=== PATIENT | female | born 1985 | race Caucasian/White ===

== ENCOUNTER 2016-12-28 15:57 | Emergency (ER) | payer OTHER ==
[~2016-12-28] VITALS: Ht 172.7 cm; Wt 130.0 kg
[~2016-12-28 15:57] MED LIST: BUPR-93 PO; ESCI10TA PO; PROP20 PO
[2016-12-28 16:13] VITALS: BP 149/96
== END 2016-12-28 18:27 | disposition left against medical advice (07) ==
LOC: EMS 15:59
DX: R51 Headache (principal); M54.2 Cervicalgia; I10 Essential (primary) hypertension; Z53.21 Procedure and treatment not carried out due to patient leaving prior to being seen by health care provider

== ENCOUNTER 2017-02-06 18:30 | Emergency (ER) | payer OTHER ==
[~2017-02-06] VITALS: Ht 175.3 cm; Wt 131.8 kg
[~2017-02-06 18:30] MED LIST changes: -BUPR-93 PO; -PROP20 PO
[2017-02-06] MEDS ORDERED: ONDANSETRON HCL 4 MG/2 ML VIAL ONE (19:13)
[2017-02-06] MEDS ORDERED: SODIUM CHLORIDE 0.9% 1,000 ML IV ONE (19:15)
[2017-02-06 19:23] LABS: HEMATOCRIT 41.8 % (36-46); HEMOGLOBIN 14.1 g/dL (12.0-16.0); MEAN CORPUSCULAR HEMOGLOBIN 28.4 pg (26.0-34.0); MEAN CORPUSCULAR HGB CONC 33.8 G/dL (31.0-37.0); MEAN CORPUSCULAR VOLUME 84 fL (80-100); PLATELET COUNT (AUTO) 336 K/uL (150-450); RED BLOOD CELL COUNT(AUTO) 4.97 MIL/uL (4.00-5.20); RED CELL DISTRIBUTION WIDTH 14.7 % (11.5-14.5); WHITE BLOOD COUNT (AUTO) 14.3 K/uL (4.5-11.0)
[2017-02-06 19:27] LABS: ANION GAP 17 mmol/L (8-16); CALCIUM, TOTAL 9.5 mg/dL (8.8-10.5); CARBON DIOXIDE 20 mmol/L (22-29); CHLORIDE 102 mmol/L (98-107); GLOMERULAR FILTR. RATE CALC > 60 mL/min (>60); POTASSIUM 3.5 mmol/L (3.5-5.1); SODIUM SERUM 139 mmol/L (136-145); UREA NITROGEN, BLOOD 11 mg/dL (7-18)
[2017-02-06] MEDS ORDERED: MORPHINE SULFATE 4 MG/ML SYRINGE IVP ONE ×2 (19:30→21:30)
[2017-02-06] MEDS ORDERED: METOCLOPRAMIDE HCL 5 MG/ML 2 ML VIAL IVP ONE (19:30)
[2017-02-06 19:33] LABS: ALANINE AMINOTRANSFERASE 16 U/L (12-78); ALBUMIN 3.9 g/dL (3.4-5.0); ASPARTATE AMINOTRANSFERASE 21 U/L (15-37); BILIRUBIN,TOTAL 1.6 mg/dL (0.1-1.0); TOTAL PROTEIN, SERUM 7.4 g/dL (6.4-8.2)
[2017-02-06 19:56] LABS: BAND NEUTROPHILS % (MANUAL) 12 % (1-5); LYMPHOCYTES % (MANUAL) 7 % (22-44); TOTAL CELLS COUNTED 100
[2017-02-06] MEDS ORDERED: BARIUM SULFATE 0.1% SUSPENSION 450 ML BOTTLE PO ONE (20:00)
[2017-02-06] MEDS ORDERED: IOVERSOL 350 MG/ML 100 ML VIAL ONE (21:16)
[2017-02-06] MEDS ORDERED: SODIUM CHLORIDE 0.9% 100 ML ONE (21:16)
[2017-02-06 23:30] VITALS: BP 136/68
[2017-02-06 23:49] LABS: APPEARANCE,URINE CLEAR (CLEAR); GLUCOSE, URINE (UA) NEGATIVE (NEGATIVE); KETONES,URINE TRACE mg/dL (NEGATIVE); LEUKOCYTE ESTERASE ,URINE TRACE (NEGATIVE); OCCULT BLOOD,URINE LARGE (NEGATIVE); PH,URINE 6.5 (5.0-8.0); PROTEIN,URINE NEGATIVE (NEGATIVE)
[2017-02-06 23:51] LABS: ADD UA MICROSCOPIC YES
[2017-02-06 23:59] LABS: SQUAMOUS EPITHELIAL CELL,UR Moderate /LPF (None Seen)
[2017-02-07] LABS: RBC,URINE 26-50 /HPF (0-2)
== END 2017-02-07 00:35 | disposition home or self-care (01) ==
LOC: EMS 18:31
DX: N39.0 Urinary tract infection, site not specified (principal); R00.1 Bradycardia, unspecified; I10 Essential (primary) hypertension; F12.90 Cannabis use, unspecified, uncomplicated; Z98.84 Bariatric surgery status
CPT/HCPCS: 36415; 74177; 80053; 80307; 81001; 83690; 84703; 85025; 93005; 96360; 96361; 96374; 96375; 96376; 99285; J2270; J2765; J7030; J7050; Q9967; Z7610; J2405

== ENCOUNTER 2017-06-04 15:09 | Emergency (ER) | payer OTHER ==
[~2017-06-04] VITALS: Ht 172.7 cm; Wt 116.4 kg
[2017-06-04] MEDS ORDERED: ONDANSETRON HCL 4 MG/2 ML VIAL IVP ONE (17:15)
[2017-06-04] MEDS ORDERED: SODIUM CHLORIDE 0.9% 1,000 ML IV ONE ×2 (17:15→18:30)
[2017-06-04] MEDS ORDERED: ACETAMINOPHEN 1000 MG/ISO-OSM 100 ML IV ONE (17:15)
[2017-06-04 17:37] LABS: APPEARANCE,URINE CLEAR (CLEAR); GLUCOSE, URINE (UA) NEGATIVE (NEGATIVE); KETONES,URINE 15 mg/dL (NEGATIVE); LEUKOCYTE ESTERASE ,URINE NEGATIVE (NEGATIVE); OCCULT BLOOD,URINE NEGATIVE (NEGATIVE); PROTEIN,URINE NEGATIVE (NEGATIVE)
[2017-06-04 17:48] LABS: SQUAMOUS EPITHELIAL CELL,UR Few /LPF (None Seen)
[2017-06-04 17:52] LABS: RBC,URINE 0-2 /HPF (0-2)
[2017-06-04 17:57] LABS: HEMATOCRIT 36.6 % (36-46); HEMOGLOBIN 12.5 g/dL (12.0-16.0); MEAN CORPUSCULAR HEMOGLOBIN 29.6 pg (26.0-34.0); MEAN CORPUSCULAR HGB CONC 34.2 G/dL (31.0-37.0); MEAN CORPUSCULAR VOLUME 87 fL (80-100); PLATELET COUNT (AUTO) 253 K/uL (150-450); RED BLOOD CELL COUNT(AUTO) 4.23 MIL/uL (4.00-5.20); RED CELL DISTRIBUTION WIDTH 15.3 % (11.5-14.5); WHITE BLOOD COUNT (AUTO) 16.9 K/uL (4.5-11.0)
[2017-06-04 18:08] LABS: ANION GAP 11 mmol/L (8-16); CALCIUM, TOTAL 8.6 mg/dL (8.8-10.5); CARBON DIOXIDE 22 mmol/L (22-29); CHLORIDE 99 mmol/L (98-107); CREATININE 0.52 mg/dL (0.60-1.30); GLOMERULAR FILTR. RATE CALC > 60 mL/min (>60); POTASSIUM 3.2 mmol/L (3.5-5.1); SODIUM SERUM 132 mmol/L (136-145); UREA NITROGEN, BLOOD 5 mg/dL (7-18)
[2017-06-04 18:13] LABS: ALANINE AMINOTRANSFERASE 18 U/L (12-78); ALBUMIN 3.1 g/dL (3.4-5.0); ASPARTATE AMINOTRANSFERASE 10 U/L (15-37); BILIRUBIN,TOTAL 0.4 mg/dL (0.1-1.0); TOTAL PROTEIN, SERUM 6.7 g/dL (6.4-8.2)
[2017-06-04 18:21] LABS: INFLUENZA TYPE B NEGATIVE FOR TYPE B (NEGATIVE)
[2017-06-04] MEDS ORDERED: OSELTAMIVIR PHOSPHATE 75 MG CAPSULE PO ONE (18:30)
[2017-06-04] MEDS ORDERED: IBUPROFEN 800 MG TABLET PO ONE (18:30)
[2017-06-04 18:41] LABS: BAND NEUTROPHILS % (MANUAL) 10 % (1-5); LYMPHOCYTES % (MANUAL) 4 % (22-44); TOTAL CELLS COUNTED 100
[2017-06-04 20:14] VITALS: BP 138/70
[2017-06-05] MEDS ORDERED: PNV11TAB PO (05:18)
== END 2017-06-04 20:18 | disposition home or self-care (01) ==
LOC: EMS 15:10
DX: O99.512 Diseases of the respiratory system complicating pregnancy, second trimester (principal); J10.1 Influenza due to other identified influenza virus with other respiratory manifestations; O10.912 Unspecified pre-existing hypertension complicating pregnancy, second trimester; O99.342 Other mental disorders complicating pregnancy, second trimester; O99.282 Endocrine, nutritional and metabolic diseases complicating pregnancy, second trimester; O99.842 Bariatric surgery status complicating pregnancy, second trimester; O21.9 Vomiting of pregnancy, unspecified; E86.0 Dehydration; R55 Syncope and collapse; R07.89 Other chest pain; F32.9 Major depressive disorder, single episode, unspecified; Z3A.16 16 weeks gestation of pregnancy
CPT/HCPCS: 36415; 71010; 76805; 80053; 81001; 85025; 87086; 87804; 93005; 96361; 96374; 96375; 99285; J0131; J2405; J7030

== ENCOUNTER 2017-06-05 05:15 | Inpatient (IN) | payer OTHER ==
[~2017-06-05] VITALS: Ht 172.7 cm; Wt 116.4 kg
[2017-06-05] MEDS ORDERED: PNV11TAB PO (05:18)
[2017-06-05] MEDS ORDERED: SODIUM CHLORIDE 0.9% 1,000 ML IV ONE (06:15)
[2017-06-05] MEDS ORDERED: PYRIDOXINE HCL 100 MG/ML VIAL IVP ONE (06:15)
[2017-06-05] MEDS ORDERED: IOVERSOL 350 MG/ML 100 ML VIAL ONE (08:32)
[2017-06-05] MEDS ORDERED: ACETAMINOPHEN 325 MG TABLET PO ONE (11:30)
[2017-06-05 14:16] VITALS: BP 110/60
[2017-06-05 15:44] VITALS: BP 115/62
[2017-06-05] MEDS ORDERED: ACETAMINOPHEN 325 MG TABLET PO PRN (15:45)
[2017-06-05] MEDS ORDERED: ONDANSETRON HCL 4 MG/2 ML VIAL IVP PRN (16:30)
[2017-06-05] MEDS ORDERED: SODIUM CHLORIDE 0.9% 500 ML IV ONE (16:39)
[2017-06-05] MEDS: ALBUTEROL SULFATE 2.5 MG/0.5 ML NEB SOLUTION NEB PRN ×2 (16:53→21:53)
[2017-06-05] MEDS: PIPERACILLIN/TAZO 3.375 GM/D5W 50 ML IV SCH ×2 (17:21→23:30)
[2017-06-05] MEDS ORDERED: VANCOMYCIN HCL 1.5 GM in DEXTROSE 5%-WATER 250 ML IV ONE (19:30)
[2017-06-05 19:48] VITALS: BP 107/59
[2017-06-05] MEDS: ACETAMINOPHEN 325 MG TABLET PO PRN (20:22)
[2017-06-05] MEDS: OSELTAMIVIR PHOSPHATE 75 MG CAPSULE PO SCH (21:39)
[2017-06-05] MEDS: PRENATAL VIT#96/FERROUS FUM/FA TABLET PO SCH (21:39)
[2017-06-05] MEDS ORDERED: 0.9% SODIUM CHLORIDE 5 ML NEB SOLUTION NEB ONE (21:51)
[2017-06-05 22:59] VITALS: BP 102/58
[2017-06-06] MEDS: VANCOMYCIN HCL 1.25 GM in DEXTROSE 5%-WATER 250 ML IV SCH ×4 (01:00→18:21)
[2017-06-06 04:27] VITALS: BP 98/56
[2017-06-06] MEDS: ACETAMINOPHEN 325 MG TABLET PO PRN ×3 (04:40→19:55)
[2017-06-06] MEDS: PIPERACILLIN/TAZO 3.375 GM/D5W 50 ML IV SCH ×3 (05:44→17:43)
[2017-06-06 06:22] LABS: BASOPHILS # (AUTO) 0.04 K/uL (0.00-0.20); BASOPHILS % (AUTO) 0.2 % (0.0-2.0); EOSINOPHILS # (AUTO) 0.01 K/uL (0.00-0.70); EOSINOPHILS % (AUTO) 0.05 % (1.0-6.0); HEMATOCRIT 30.9 % (36-46); HEMOGLOBIN 10.5 g/dL (12.0-16.0); LYMPHOCYTES # (AUTO) 1.1 K/uL (1.0-4.8); LYMPHOCYTES % (AUTO) 4.7 % (22.0-44.0); MEAN CORPUSCULAR HEMOGLOBIN 29.6 pg (26.0-34.0); MEAN CORPUSCULAR HGB CONC 34.1 G/dL (31.0-37.0); MEAN CORPUSCULAR VOLUME 87 fL (80-100); MONOCYTES # (AUTO) 0.4 K/uL (0.1-1.0); MONOCYTES % (AUTO) 1.7 % (2.0-9.0); PLATELET COUNT (AUTO) 212 K/uL (150-450); RED BLOOD CELL COUNT(AUTO) 3.55 MIL/uL (4.00-5.20); RED CELL DISTRIBUTION WIDTH 14.8 % (11.5-14.5); WHITE BLOOD COUNT (AUTO) 23.6 K/uL (4.5-11.0)
[2017-06-06 06:50] LABS: ANION GAP 10 mmol/L (8-16); CALCIUM, TOTAL 8.5 mg/dL (8.8-10.5); CARBON DIOXIDE 24 mmol/L (22-29); CHLORIDE 103 mmol/L (98-107); CREATININE 0.57 mg/dL (0.60-1.30); GLOMERULAR FILTR. RATE CALC > 60 mL/min (>60); SODIUM SERUM 137 mmol/L (136-145); UREA NITROGEN, BLOOD 6 mg/dL (7-18)
[2017-06-06 07:03] LABS: POTASSIUM 2.8 mmol/L (3.5-5.1)
[2017-06-06 07:16] LABS: PROCALCITONIN (PCT) 5.43 ng/mL (<0.50)
[2017-06-06 07:18] LABS: NEUTROPHILS % (AUTO) 93.4 % (40.0-70.0); RBC MORPHOLOGY COMMENT NORMAL RBC MORPH
[2017-06-06 07:21] VITALS: BP 98/62
[2017-06-06] MEDS: OSELTAMIVIR PHOSPHATE 75 MG CAPSULE PO SCH ×2 (08:04→19:56)
[2017-06-06] MEDS: PRENATAL VIT#96/FERROUS FUM/FA TABLET PO SCH (08:04)
[2017-06-06] MEDS ORDERED: 0.9% SODIUM CHLORIDE 5 ML NEB SOLUTION NEB ONE ×2 (08:50→17:29)
[2017-06-06] MEDS: ALBUTEROL SULFATE 2.5 MG/0.5 ML NEB SOLUTION NEB PRN ×2 (08:53→17:34)
[2017-06-06] MEDS ORDERED: SODIUM CHLORIDE 0.9% 500 ML IV ONE (11:11)
[2017-06-06 11:19] VITALS: BP 99/52
[2017-06-06] MEDS ORDERED: POTASSIUM CHLORIDE 20 MEQ ER TABLET PO ONE (11:30)
[2017-06-06 15:33] VITALS: BP 112/62
[2017-06-06 19:41] VITALS: BP 105/57
[2017-06-07] MEDS: PIPERACILLIN/TAZO 3.375 GM/D5W 50 ML IV SCH ×4 (00:09→17:47)
[2017-06-07 00:17] VITALS: BP 97/66
[2017-06-07] MEDS: VANCOMYCIN HCL 1.25 GM in DEXTROSE 5%-WATER 250 ML IV SCH ×4 (00:46→18:19)
[2017-06-07 04:38] VITALS: BP 101/53
[2017-06-07 06:14] LABS: ANION GAP 6 mmol/L (8-16); CALCIUM, TOTAL 8.4 mg/dL (8.8-10.5); CARBON DIOXIDE 26 mmol/L (22-29); CHLORIDE 104 mmol/L (98-107); CREATININE 0.56 mg/dL (0.60-1.30); GLOMERULAR FILTR. RATE CALC > 60 mL/min (>60); SODIUM SERUM 136 mmol/L (136-145); UREA NITROGEN, BLOOD 7 mg/dL (7-18)
[2017-06-07] MEDS: ACETAMINOPHEN 325 MG TABLET PO PRN ×2 (06:49→19:53)
[2017-06-07 06:55] LABS: POTASSIUM 2.9 mmol/L (3.5-5.1)
[2017-06-07] MEDS ORDERED: POTASSIUM CHLORIDE 20 MEQ ER TABLET PO ONE ×2 (07:15→12:00)
[2017-06-07 07:45] VITALS: BP 116/78
[2017-06-07] MEDS: PRENATAL VIT#96/FERROUS FUM/FA TABLET PO SCH (08:20)
[2017-06-07] MEDS: OSELTAMIVIR PHOSPHATE 75 MG CAPSULE PO SCH ×2 (08:20→19:50)
[2017-06-07 11:23] VITALS: BP 110/66
[2017-06-07 16:36] LABS: BASOPHILS % (AUTO) 0.1 % (0.0-2.0); EOSINOPHILS % (AUTO) 2.8 % (1.0-6.0); HEMATOCRIT 29.2 % (36-46); HEMOGLOBIN 9.9 g/dL (12.0-16.0); LYMPHOCYTES # (AUTO) 1.7 K/uL (1.0-4.8); LYMPHOCYTES % (AUTO) 15.7 % (22.0-44.0); MEAN CORPUSCULAR HEMOGLOBIN 29.7 pg (26.0-34.0); MEAN CORPUSCULAR VOLUME 87 fL (80-100); MONOCYTES # (AUTO) 0.2 K/uL (0.1-1.0); MONOCYTES % (AUTO) 1.7 % (2.0-9.0); NEUTROPHILS # (AUTO) 8.6 K/uL (1.8-7.7); NEUTROPHILS % (AUTO) 79.7 % (40.0-70.0); PLATELET COUNT (AUTO) 245 K/uL (150-450); RED BLOOD CELL COUNT(AUTO) 3.35 MIL/uL (4.00-5.20); RED CELL DISTRIBUTION WIDTH 15.8 % (11.5-14.5); WHITE BLOOD COUNT (AUTO) 10.9 K/uL (4.5-11.0)
[2017-06-07 20:08] VITALS: BP 119/85
[2017-06-07] MEDS ORDERED: 0.9% SODIUM CHLORIDE 5 ML NEB SOLUTION NEB ONE (20:27)
[2017-06-07] MEDS: ALBUTEROL SULFATE 2.5 MG/0.5 ML NEB SOLUTION NEB PRN (20:41)
[2017-06-07] MEDS: AZITHROMYCIN 250 MG TABLET PO SCH (21:57)
[2017-06-07 23:50] VITALS: BP 108/78
[2017-06-08] MEDS ORDERED: CefTRIAXone SODIUM 2 GM in DEXTROSE 5%-WATER 50 ML IV SCH ×2
[2017-06-08] MEDS: ACETAMINOPHEN 325 MG TABLET PO PRN ×2 (04:03→08:05)
[2017-06-08 04:33] VITALS: BP 124/71
[2017-06-08 06:20] LABS: ANION GAP 7 mmol/L (8-16); CALCIUM, TOTAL 8.5 mg/dL (8.8-10.5); CARBON DIOXIDE 24 mmol/L (22-29); CHLORIDE 106 mmol/L (98-107); CREATININE 0.56 mg/dL (0.60-1.30); GLOMERULAR FILTR. RATE CALC > 60 mL/min (>60); POTASSIUM 3.4 mmol/L (3.5-5.1); SODIUM SERUM 137 mmol/L (136-145); UREA NITROGEN, BLOOD 7 mg/dL (7-18)
[2017-06-08 07:40] VITALS: BP 144/92
[2017-06-08 07:59] LABS: PROCALCITONIN (PCT) 2.18 ng/mL (<0.50)
[2017-06-08] MEDS: OSELTAMIVIR PHOSPHATE 75 MG CAPSULE PO SCH (08:01)
[2017-06-08] MEDS: PRENATAL VIT#96/FERROUS FUM/FA TABLET PO SCH (08:01)
[2017-06-08] MEDS: AZITHROMYCIN 250 MG TABLET PO SCH (08:04)
[2017-06-08] MEDS ORDERED: POTASSIUM CHLORIDE 20 MEQ ER TABLET PO ONE (15:00)
[2017-06-08] MEDS ORDERED: AMOX500C2 PO (15:48)
[2017-06-08] MEDS ORDERED: AZIT250T9 PO (15:50)
[2017-06-11 11:14] LABS: ORGANISM ID Not indicated.
== END 2017-06-08 15:40 | disposition home or self-care (01) | DRG 566 ==
LOC: EMS 05:17 → 6N 12:22
PROVIDERS: ADMIT Internal Medicine; ATTEND Internal Medicine
DX: O98.812 Other maternal infectious and parasitic diseases complicating pregnancy, second trimester (principal); J10.08 Influenza due to other identified influenza virus with other specified pneumonia; A41.9 Sepsis, unspecified organism; O99.212 Obesity complicating pregnancy, second trimester; O10.012 Pre-existing essential hypertension complicating pregnancy, second trimester; O99.342 Other mental disorders complicating pregnancy, second trimester; F32.9 Major depressive disorder, single episode, unspecified; O99.512 Diseases of the respiratory system complicating pregnancy, second trimester; E66.9 Obesity, unspecified; O99.842 Bariatric surgery status complicating pregnancy, second trimester; G89.29 Other chronic pain; O26.892 Other specified pregnancy related conditions, second trimester; J15.9 Unspecified bacterial pneumonia; Z3A.16 16 weeks gestation of pregnancy; Z68.39 Body mass index [BMI] 39.0-39.9, adult; Z90.49 Acquired absence of other specified parts of digestive tract; Z83.3 Family history of diabetes mellitus
CPT/HCPCS: 71275; 80307; 83735; 84132; 84145; 87040; 87070; 87205; 87449; 87899; 93005; 94640; 96361; 96374; 99285; J0696; J2543; J3370; J3415; J7030; J7040; J7060